=== PATIENT | female | born 1960 | race Asian ===

== ENCOUNTER 2017-09-28 20:53 | Emergency (ER) | payer BC, OTHER ==
[~2017-09-28] VITALS: Ht 162.6 cm; Wt 72.6 kg
[~2017-09-28 20:53] MED LIST: ASPI81CH PO; BLOOD PRESSURE PILL; ENAL5 PO; EXFORGE HCT 101 EAC2 PO; HYDACE5 PO; OSEL75CA PO
== END 2017-09-28 21:39 | disposition home or self-care (01) ==
LOC: ER 20:53
DX: M25.561 Pain in right knee (principal); I10 Essential (primary) hypertension; Z79.899 Other long term (current) drug therapy
CPT/HCPCS: 29505; 96372; 99282-25; J1885